=== PATIENT | male | born 1955 | race Caucasian/White ===

== ENCOUNTER → 2019-03-19 06:00 | Outpatient (CLI) | payer OTHER ==
[~2019-03-19 06:00] MED LIST: AMILODIPINE PO; [UNRECOGNIZED DRUG - OTHER] PO
== END | disposition home or self-care (01) ==
LOC: LAB 06:00 → CIR.AMB 03-25 07:15 → EDSTATUS 03-25 15:00 → CIR.AMB 03-25 15:00
DX: M19.131 Post-traumatic osteoarthritis, right wrist (principal); Z01.818 Encounter for other preprocedural examination

== ENCOUNTER 2020-10-19 19:08 | Emergency (ER) | payer OTHER ==
[~2020-10-19] VITALS: Ht 180.3 cm; Wt 93.0 kg
[2020-10-19] MEDS ORDERED: AZOR 10-40 MG1 EACH (19:40)
[2020-10-19] MEDS ORDERED: PLAVIX75 MG (19:41)
[2020-10-19] MEDS ORDERED: ZETIA10 MG (19:43)
[2020-10-19] MEDS ORDERED: CRESTOR10 MG (19:43)
== END 2020-10-19 21:28 | disposition home or self-care (01) ==
LOC: ER 19:08
DX: S50.12XA Contusion of left forearm, initial encounter (principal); W18.09XA Striking against other object with subsequent fall, initial encounter; Y93.89 Activity, other specified; Y92.89 Other specified places as the place of occurrence of the external cause; Y99.8 Other external cause status

== ENCOUNTER 2022-02-04 11:43 | Emergency (ER) | payer OTHER ==
[~2022-02-04] VITALS: Ht 154.9 cm; Wt 91.2 kg
[~2022-02-04 11:43] MED LIST changes: +AZOR 10-40 MG1 EACH; +CRESTOR10 MG; +PLAVIX75 MG; +ZETIA10 MG
== END 2022-02-04 16:33 ==
LOC: ER 11:43
DX: S60.011A Contusion of right thumb without damage to nail, initial encounter (principal); X58.XXXA Exposure to other specified factors, initial encounter; Y93.9 Activity, unspecified; Y92.018 Other place in single-family (private) house as the place of occurrence of the external cause

== ENCOUNTER 2022-03-14 07:03 | Day surgery (SDC) | payer OTHER ==
[~2022-03-14] VITALS: Ht 180.3 cm; Wt 91.6 kg
== END 2022-03-14 17:05 | disposition home or self-care (01) ==
LOC: CIR.AMB 07:03
PROVIDERS: ATTEND Orthopaedic Surgery Hand Surgery
DX: M24.831 Other specific joint derangements of right wrist, not elsewhere classified (principal); Z88.6 Allergy status to analgesic agent; I10 Essential (primary) hypertension; Z71.6 Tobacco abuse counseling; F17.210 Nicotine dependence, cigarettes, uncomplicated; G43.909 Migraine, unspecified, not intractable, without status migrainosus; M19.90 Unspecified osteoarthritis, unspecified site; Z79.02 Long term (current) use of antithrombotics/antiplatelets; Z92.21 Personal history of antineoplastic chemotherapy

== ENCOUNTER 2023-12-01 19:48 | Emergency (ER) | payer OTHER ==
[~2023-12-01] VITALS: Ht 180.3 cm; Wt 93.0 kg
== END 2023-12-01 20:51 | disposition home or self-care (01) ==
LOC: ER 19:48
DX: M54.9 Dorsalgia, unspecified (principal)